=== PATIENT | male | born 1975 | race Caucasian/White ===

== ENCOUNTER 2023-04-10 17:43 | Emergency (ER) | payer SELFPAY ==
[~2023-04-10] VITALS: Ht 170.2 cm; Wt 63.6 kg
[2023-04-10 19:36] LABS: Basophils # (auto) 0.1 10 ^3/uL (0-0.2); Eosinophils # (auto) 0.2 10 ^3/uL (0-0.8); Eosinophils % (auto) 1.9 % (0.0-7.0); Hematocrit 42.1 % (41.0-53.0); Hemoglobin 14.1 g/dL (13.5-17.5); Lymphocytes # (auto) 1.9 10 ^3/uL (0.4-5.4); Lymphocytes % (auto) 16.2 % (10.0-50.0); Mean Corpuscular Hemoglobin 31.7 pg (28.0-32.0); Mean Corpuscular Hgb Conc. 33.5 g/dL (32.0-36.0); Mean Corpuscular Volume 94.6 fL (80.0-100.0); Neutrophils # (auto) 8.3 10 ^3/uL (1.6-8.6); Neutrophils % (auto) 71.9 % (37.0-80.0); Nucleated Red Blood Cells % 0.1 %; Red Blood Cells 4.45 10^6/uL (4.5-5.90); Red Cell Distribution Width 14.4 % (11.8-14.3); White Blood Cell 11.6 10^3/uL (4.4-10.8)
[2023-04-10 19:40] LABS: Chloride 95 mmol/L (98-107); Potassium 4.1 mmol/L (3.5-5.1); Sodium 125 mmol/L (136-145)
[2023-04-10 19:41] LABS: Anion Gap 8 (5-15); Carbon Dioxide 22 mmol/L (20-30)
[2023-04-10 19:42] LABS: Calcium 9.1 mg/dL (8.5-10.1)
[2023-04-10] MEDS ORDERED: SODIUM CHLORIDE 0.9% 1,000 ML IV ONE (19:45)
[2023-04-10 19:46] LABS: Glucose 90 mg/dL (74-106)
[2023-04-10 19:47] LABS: Blood Alcohol 64.6 mg/dL (<10)
[2023-04-10 20:39] LABS: BUN/Creatinine Ratio 8.1 (10.0-20.0); Blood Urea Nitrogen < 5 mg/dL (9-23)
[2023-04-11] MEDS: SODIUM CHLORIDE 0.9% 1,000 ML IV ONE ×2 (00:15→06:38)
[2023-04-11] MEDS: ONDANSETRON ODT 4 MG TAB PO ONE (06:47)
[2023-04-11] MEDS: THIAMINE 100mg/ml INJ (200mg/2ml VIAL) IV ONE (07:34)
[2023-04-11 07:42] VITALS: RESP 16; O2SAT 96
[2023-04-11 07:50] VITALS: BP 116/85; PULSE 74; RESP 16; TEMP 97.8; O2SAT 99
== END 2023-04-11 07:52 | disposition home or self-care (01) ==
LOC: EDBD 17:43 → ER 17:43
DX: E87.1 Hypo-osmolality and hyponatremia (principal); F10.129 Alcohol abuse with intoxication, unspecified; Y90.0 Blood alcohol level of less than 20 mg/100 ml
CPT/HCPCS: 36415; 80048; 80320; 85025; 96361; 96374; 99283; J3411; J7030

== ENCOUNTER 2024-05-05 23:42 | Emergency (ER) | payer MEDICAID, OTHER ==
[~2024-05-05] VITALS: Ht 170.2 cm; Wt 64.0 kg
[2024-05-06 01:45] VITALS: BP 128/85; RESP 18; TEMP 98.6; O2SAT 99
[2024-05-06] MEDS: LORazepam 0.5 MG TAB PO ONE (02:56)
[2024-05-06] MEDS ORDERED: HYDR50CA2 PO (02:57)
--- NOTE | 2024-05-06 02:57 | ED.PDOC ---
Psychiatric HPI Comments 48-year-old male presents to ER with complaints of anxiety x2 weeks. Patient reports he has been experiencing intermittent episodes of feeling "very anxious" with associated shortness of breath while attempting to go to sleep over the course of 2 weeks. She he has been under a significant increase in the amount of stress recently. Denies any pain. Denies use of medications for current symptoms. Patient presents to ER ambulatory on arrival, steady gait, in no distress with vitals stable. Denies chest pain, nausea/vomiting, numbness/tingling, headache, hallucinations, SI/HI or any further symptoms/complaints Chief Complaint: Anxiety Time Seen by MD: 23:55 Primary Care Provider: JYOTI Reviewed Notes: Nurses Notes, Medications, Allergies Information Source: Patient Mode of Arrival: EMS Past Medical History PAST MEDICAL HISTORY: Denies Surgical History: Denies all surgeries Family History Family History: Unknown Social History Smoker: Cigarettes, Less Than 1 Pack/Day Alcohol: Denies ETOH Use Drugs: Denies Drug Use Lives In: Home Constitutional: denies: chills, diaphoresis, fatigue, fever, malaise, sweats, weakness, others EENTM: denies: blurred vision, double vision, ear bleeding, ear discharge, ear drainage, ear pain, ear ringing, eye pain, eye redness, hearing loss, mouth pain, mouth swelling, nasal discharge, nose bleeding, nose congestion, nose pain, photophobia, tearing, throat pain, throat swelling, voice changes, others Respiratory: reports: others (As stated in HPI) Cardiovascular: denies: chest pain, dizzy spells, diaphoresis, Dyspnea on exertion, edema, irregular heart beat, left arm pain, lightheadedness, palpitations, PND, syncope, others Gastrointestinal: denies: abdomen distended, abdominal pain, blood streaked bowels, constipated, diarrhea, dysphagia, difficulty swallowing, hematemesis, melena, nausea, poor appetite, poor fluid intake, rectal bleeding, rectal pain, vomiting, others Genitourinary: denies: burning, dysuria, flank pain, frequency, hematuria, incontinence, penile discharge, penile sore, pain, testicle pain, testicle swelling, urgency, others Neurological: denies: dizziness, fainting, headache, left sided numbness, left sided weakness, numbness, paresthesia, pre-existing deficit, right sided numbness, right sided weakness, seizure, speech problems, tingling, tremors, weakness, others Musculoskeletal: denies: back pain, gout, joint pain, joint swelling, muscle pain, muscle stiffness, neck pain, others Integumetry: denies: bruises, change in color, change in hair/nails, dryness, laceration, lesions, lumps, rash, wounds, others Allergic/Immunocompromised: denies: Difficulty Healing, Frequent Infections, Hives, Itching, others Hematologic/Lymphatic: denies: anemia, blood clots, easy bleeding, easy bruising, swollen glands, others Endocrine: denies: excessive hunger, excessive sweating, excessive thirst, excessive urination, flushing, intolerance to cold, intolerance to heat, unexplained weight gain, unexplained weight loss, others Psychiatric: reports: others (As stated in HPI) Physical Exam General Appearance: No Apparent Distress HEENT: Normal ENT Inspection, PERRL/EOMI, Pharynx Normal, TMs Normal Neck: Full Range of Motion, Non-Tender, Normal Respiratory: Chest Non-Tender, Lungs Clear, No Accessory Muscle Use, No Respiratory Distress, Normal Breath Sounds Cardiovascular: No Murmur, No Gallop, Regular Rate/Rhythm Breast Exam: Deferred Gastrointestinal: NOT DONE Genitalia: Deferred Pelvic: Deferred Rectal: Deferred Extremities: Normal capillary refill, Normal range of motion Neurologic: Alert, graphic design manager II-XII nml as Tested, No Motor Deficits, Normal Affect, Normal Mood, No Sensory Deficits Cerebellar Function: Normal Reflexes: Normal Skin: Dry, Normal Color, Warm Peripheral Pulses: 2+ Radial (R), 2+ Radial (L), 2+ Brachial (R), 2+ Brachial (L) Lymphatic: No Adenopathy EKG EKG : Pulse Rate (adult): 65 Cardiac Rhythm: NSR (SR) Hypertrophy: None ST: Normal Was a procedure done? Was a procedure done?: No Sedation Sedation?: No Psych Differential Dx Psych. Differential Dx: Depression Intoxication Differential Dx: Hallucinations, Dehydration X-Ray, Labs, Meds, VS Vital Signs Date Time Temp Pulse Resp B/P (MAP) Pulse Ox O2 Delivery O2 Flow Rate FiO2 05/06/24 01:45 70 18 99 Room Air 05/06/24 01:45 98.6 70 18 128/85 (99) 99 98.6 05/06/24 00:06 65 05/05/24 23:53 98.6 70 18 128/85 (99) 99 Current Medications Medications (Trade) Dose Ordered Sig/Ariel Route Start Time Stop Time Status Last Admin Lorazepam (Ativan Tablet) 1 mg ONCE ONCE PO 05/06/24 02:45 05/06/24 02:46 DC 05/06/24 02:56 Ativan 1 mg p.o. ordered EKG reviewed Patient had improvement in symptoms and in no distress prior to discharge Advised to drink plenty of fluids Smoking cessation discussed and advised Advised to follow up with PCP and psychiatrist in 1-2 days Patient alert and oriented x4 prior to discharge. Patient verbalized understanding and agreeable with current plan of care Advised to return to ER immediately if symptoms worsen Time of 1ST Reevaluation: 02:24 Reevaluation 1ST: N/A Patient Education/Counseling: Diagnosis, Treatment, Prognosis, Need For Follow Up Family Education/Counseling: No Family Present Departure 1 Departure Time of Disposition: 02:52 Impression: Primary Impression: Anxiety Disposition: 01 HOME / SELF CARE / HOMELESS Condition: Stable e-Prescriptions Hydroxyzine Pamoate (Hydroxyzine Pamoate) 50 Mg Cap 1 CAP PO Q6HPRN, #16 CAP 0 Refills Prov: KAYLEE REYES 05/06/24 Discharged With: Friend Critical Care Note Critical Care Time?: No Stability Stability form required: No Heart Score Heart Score: Heart Score Response (Comments) Value History N/A 0 EKG N/A 0 Age N/A 0 Risk Factors N/A 0 Troponin N/A 0 Total 0 KAYLEE REYES May 06, 2024 02:57
[2024-05-06 03:07] VITALS: PULSE 65
--- NOTE | 2024-05-06 06:39 | ECG ---
[facility] Test Date: 2024-05-06 Test Time: 00:06:21 Pat Name: PHILIPPE GALVIN Department: ED Room: Gender: M [employer] Nursing: : 1975 Requested By: KAYLEE REYES Order Number: [id number] Reading MD: Kwan Parks Measurements Intervals Clark Rate: 65 P: 71 CO: 135 QRS: 94 QRSD: 92 T: 57 QT: 405 QTc: 422 Interpretive Statements Sinus rhythm Borderline right axis deviation Electronically Signed On 05-09-2024 18:51:39 PDT by Kwan Parks Please click the below link to view image of tracing.
== END 2024-05-06 03:11 | disposition home or self-care (01) ==
LOC: ER 23:42 → EDBD 23:42 → ER 05-06 03:08
DX: F41.9 Anxiety disorder, unspecified (principal); F17.210 Nicotine dependence, cigarettes, uncomplicated
CPT/HCPCS: 93005

== ENCOUNTER 2024-05-06 00:02 | Emergency (ER) | payer OTHER ==
[2024-05-06] MEDS ORDERED: HYDR50CA2 PO (02:57)
== END 2024-05-06 00:05 | disposition left against medical advice (07) ==
LOC: ER 00:02
DX: R06.02 Shortness of breath (principal); Z53.21 Procedure and treatment not carried out due to patient leaving prior to being seen by health care provider

== ENCOUNTER 2024-05-17 09:36 | Emergency (ER) | payer OTHER ==
[~2024-05-17] VITALS: Ht 170.2 cm; Wt 67.0 kg
[~2024-05-17 09:36] MED LIST: HYDR50CA2 PO
[2024-05-17 09:49] VITALS: BP 125/85; PULSE 107; RESP 16; TEMP 98.8; O2SAT 98
--- NOTE | 2024-05-17 10:36 | ED.PDOC ---
History of Present Illness HPI Comments 48-year-old male who comes in with chief complaint of bloating over the past two weeks. No nausea or vomiting or diarrhea. The patient denies any fever or chills. The patient was able to ambulate into the emergency department. Chief Complaint: Constipation Time Seen by MD: 10:17 Primary Care Provider: CARRIE Gzt Notes: Nurses Notes, Medications, Allergies (No allergies to medications) Allergies: Coded Allergies: NO KNOWN ALLERGIES (Unverified , 04/10/23) Home Meds Active Scripts Diphenoxylate W/ Atropine (Lomotil) 2.5 Mg Tab, 1 TAB PO TID, #15 TAB Prov:CRISTIAN CHAVES MD 05/17/24 Hydroxyzine Pamoate (Hydroxyzine Pamoate) 50 Mg Cap, 1 CAP PO Q6HPRN, #16 CAP 0 Refills Prov:KAYLEE REYES 05/06/24 Information Source: Patient Mode of Arrival: Ambulatory Severity: Mild Timing: Days Duration: Since onset Prehospital treatment: None Associated signs and symptoms Bloating but no nausea, vomiting or diarrhea Past Medical History PAST MEDICAL HISTORY: Denies Surgical History: Denies all surgeries Family History Family History: Reviewed,noncontributory to illness, No family hx of Cancer, No family hx of DM, No family hx of Heart [place], No family hx of HTN, No family hx ofKidney [place], No family hx of Liver [place], No family hx of Lung [place], No family hx of Stroke Social History Smoker: Cigarettes Alcohol: Denies ETOH Use Drugs: Denies Drug Use Lives In: Home Constitutional: denies: chills, diaphoresis, fatigue, fever, malaise, sweats, weakness, others EENTM: denies: blurred vision, double vision, ear bleeding, ear discharge, ear drainage, ear pain, ear ringing, eye pain, eye redness, hearing loss, mouth pain, mouth swelling, nasal discharge, nose bleeding, nose congestion, nose pain, photophobia, tearing, throat pain, throat swelling, voice changes, others Respiratory: denies: cough, hemoptysis, orthopnea, SOB at rest, shortness of breath, SOB with excertion, stridor, wheezing, others Cardiovascular: denies: chest pain, dizzy spells, diaphoresis, Dyspnea on exertion, edema, irregular heart beat, left arm pain, lightheadedness, palpitations, PND, syncope, others Gastrointestinal: reports: constipated; denies: abdomen distended, abdominal pain, blood streaked bowels, diarrhea, dysphagia, difficulty swallowing, hematemesis, melena, nausea, poor appetite, poor fluid intake, rectal bleeding, rectal pain, vomiting, others Genitourinary: reports: others (Bloating); denies: burning, dysuria, flank pain, frequency, hematuria, incontinence, penile discharge, penile sore, pain, testicle pain, testicle swelling, urgency Neurological: denies: dizziness, fainting, headache, left sided numbness, left sided weakness, numbness, paresthesia, pre-existing deficit, right sided numbness, right sided weakness, seizure, speech problems, tingling, tremors, weakness, others Musculoskeletal: denies: back pain, gout, joint pain, joint swelling, muscle pain, muscle stiffness, neck pain, others Integumetry: denies: bruises, change in color, change in hair/nails, dryness, laceration, lesions, lumps, rash, wounds, others Allergic/Immunocompromised: denies: Difficulty Healing, Frequent Infections, Hives, Itching, others Hematologic/Lymphatic: denies: anemia, blood clots, easy bleeding, easy bruising, swollen glands, others Endocrine: denies: excessive hunger, excessive sweating, excessive thirst, excessive urination, flushing, intolerance to cold, intolerance to heat, unexplained weight gain, unexplained weight loss, others Psychiatric: denies: anxiety, bipolar disorder, depression, hopeless, panic disorder, schizophrenia, sleepless, suicidal, others Physical Exam General Appearance: No Apparent Distress HEENT: Normal ENT Inspection, Pharynx Normal, TMs Normal Neck: Full Range of Motion, Non-Tender, Normal, Normal Inspection Respiratory: Chest Non-Tender, Lungs Clear, No Accessory Muscle Use, No Respiratory Distress, Normal Breath Sounds Cardiovascular: No Edema, No JVD, No Murmur, No Gallop, Normal Peripheral Pulses, Regular Rate/Rhythm Breast Exam: Deferred Gastrointestinal: No Organomegaly, Non Tender, No Pulsatile Mass, Normal Bowel Sounds, Soft Genitalia: Deferred Pelvic: Deferred Rectal: Deferred Extremities: No calf tenderness, Normal capillary refill, Normal inspection, Normal range of motion, Non-tender, No pedal edema Musculoskeletal : Apperance: Normal Neurologic: Alert, interior design principal II-XII nml as Tested, No Motor Deficits, Normal Affect, Normal Mood, No Sensory Deficits Cerebellar Function: Normal Reflexes: Normal Skin: Dry, Normal Color, Warm Lymphatic: No Adenopathy Was a procedure done? Was a procedure done?: No Differential Dx Considerations may include: Obstruction, viral syndrome X-Ray, Labs, Meds, VS Vital Signs Date Time Temp Pulse Resp B/P (MAP) Pulse Ox O2 Delivery O2 Flow Rate FiO2 05/17/24 09:49 107 16 98 Room Air 05/17/24 09:49 98.8 107 16 125/85 (98) 98 98.8 05/17/24 09:45 98.8 107 16 125/85 (98) 98 98.8 Lab Test 05/17/24 10:57 Range/Units Urine Color Pending Urine Clarity Pending Urine pH Pending Urine Specific [place] Pending Urine Protein Pending Urine Ketones Pending Urine Blood Pending Urine Nitrite Pending Urine Bilirubin Pending Urine Urobilinogen Pending Urine Leukocyte Esterase Pending Urine RBC Pending Urine Microscopic WBC Pending Urine Squamous Epithelial Cells Pending Urine Bacteria Pending Urine Glucose Pending The KUB is negative The patient was being discharged and will follow up with the primary care doctor The patient will return to the emergency department's condition worsens. Images Reviewed?: Images reviewed and evaluated by me Time of 1ST Reevaluation: 10:36 Reevaluation 1ST: Improved Patient Education/Counseling: Diagnosis, Treatment, Prognosis, Need For Follow Up Family Education/Counseling: No Family Present Departure 1 Departure Time of Disposition: 11:06 Impression: Primary Impression: Constipation Qualified Codes: K59.00 - Constipation, unspecified Disposition: HOME / SELF CARE / HOMELESS Condition: Fair e-Prescriptions Diphenoxylate W/ Atropine (Lomotil) 2.5 Mg Tab 1 TAB PO TID, #15 TAB Prov: CRISTIAN CHAVES MD 05/17/24 Discharged With: Self Critical Care Note Critical Care Time?: No Stability Stability form required: No Heart Score Heart Score: Heart Score Response (Comments) Value History N/A 0 EKG N/A 0 Age N/A 0 Risk Factors N/A 0 Troponin N/A 0 Total 0 CRISTIAN CHAVES MD May 17, 2024 10:36
[2024-05-17] MEDS ORDERED: DIPH2.5T73 PO (10:54)
[2024-05-17 10:58] LABS: Urine Bacteria None Seen /hpf (None Seen)
--- NOTE | 2024-05-17 10:59 | DVH ---
Exam: XY KUB ABDOMEN SINGLE VIEW Indication: bloating Comparison: None Technique: 2 radiographic views of the abdomen. Findings: Nonobstructive bowel gas pattern noted. No abnormal calcifications noted. Mild dextroscoliosis of the thoracolumbar spine. Normal heart size. No dilated small bowel loops. No rmal sacroiliac joints. Impression: 1. Nonobstructive bowel gas pattern noted.
[2024-05-17 11:17] LABS: Urine Blood Negative /uL (Negative); Urine Clarity Clear (Clear); Urine Color Yellow (Yellow); Urine Mucus FEW (None Seen); Urine Protein, UAD Negative (Negative); Urine Specific Gravity 1.027 (1.001-1.035); Urine Squamous Epithelial Cell None Seen /hpf (<5); Urine Urobilinogen Normal (Negative); Urine WBC < 1 /HPF (0-3)
== END 2024-05-17 11:06 | disposition home or self-care (01) ==
LOC: ER 09:36
DX: K59.00 Constipation, unspecified (principal); F17.210 Nicotine dependence, cigarettes, uncomplicated
CPT/HCPCS: 74018; 81001